=== PATIENT | male | born 1965 | race Caucasian/White ===

== ENCOUNTER 2017-08-25 05:32 | Inpatient (IN) | payer OTHER ==
[2017-08-25] MEDS ORDERED: LACTATED RINGER'S 1,000 ML IV* (06:00)
[2017-08-25] MEDS ORDERED: CEFAZOLIN 2 GM/50 ML (PMX) 50 ML IVPB (06:00)
[2017-08-25] MEDS ORDERED: HYDROmorphONE 0.5 MG/0.5 ML SYG IV (07:00)
[2017-08-25] MEDS ORDERED: DIPHENHYDRAMINE 25 MG CAP PO (07:00)
[2017-08-25] MEDS ORDERED: AL HYDROX/MG HYDROX/SIMETH 30 ML CUP PO (07:00)
[2017-08-25] MEDS ORDERED: HYDROCODONE/APAP (10/325) TAB PO (07:00)
[2017-08-25] MEDS ORDERED: DIPHENHYDRAMINE 50 MG INJ IV ×2 (07:00→09:00)
[2017-08-25] MEDS ORDERED: CEPASTAT LOZENGE MT (07:00)
[2017-08-25] MEDS ORDERED: NALOXONE (0.4 MG/ML) INJ IV (07:00)
[2017-08-25] MEDS ORDERED: ONDANSETRON 4 MG INJ IV (07:00)
[2017-08-25] MEDS ORDERED: CEFAZOLIN 1 GM INJ ×2 (07:00→07:02)
[2017-08-25] MEDS ORDERED: ACETAMINOPHEN 325 MG TAB PO (07:00)
[2017-08-25] MEDS ORDERED: BISACODYL 10 MG SUPP PR (07:00)
[2017-08-25] MEDS ORDERED: PROPOFOL 20 ML (07:02)
[2017-08-25] MEDS ORDERED: GLYCOPYRROLATE 0.4 MG INJ (07:02)
[2017-08-25] MEDS ORDERED: NEOSTIGMINE 3 MG/3 ML SYRINGE (07:02)
[2017-08-25] MEDS ORDERED: ROCURONIUM 50 MG INJ (07:02)
[2017-08-25] MEDS ORDERED: ONDANSETRON 4 MG INJ (07:04)
[2017-08-25] MEDS ORDERED: DEXAMETHASONE 4 MG/ML 1 ML INJ (07:04)
[2017-08-25] MEDS ORDERED: MIDAZOLAM 1 MG/ML 2 ML INJ (07:04)
[2017-08-25] MEDS: LIDOCAINE 1%/EPI 30 ML INJ (08:08)
[2017-08-25] MEDS: THROMBIN 5000 UNIT VIAL (08:09)
[2017-08-25] MEDS: CA CHLORIDE 10% 10 ML SYRINGE (08:10)
[2017-08-25] MEDS: HEPARIN 1000 UNITS/ML 10 ML INJ (08:14)
[2017-08-25] MEDS: POLYMYXIN/BACITRACIN 1L IRRIG (08:58)
[2017-08-25] MEDS ORDERED: IPRATROPIUM (NEB) 0.5 MG/2.5 ML AMP HHN (09:00)
[2017-08-25] MEDS ORDERED: FENTAnyl 50 MCG/ML VIAL IV ×2 (09:00)
[2017-08-25] MEDS: DOCUSATE SODIUM 100 MG CAP PO ×2 (09:00→21:08)
[2017-08-25] MEDS ORDERED: EPHEDrine SULFATE 50 MG/5 ML SYG IV (09:00)
[2017-08-25] MEDS ORDERED: MIDAZOLAM 1 MG/ML 2 ML INJ IV (09:00)
[2017-08-25] MEDS ORDERED: MEPERIDINE 25 MG INJ IV (09:00)
[2017-08-25] MEDS ORDERED: OXYCODONE/ACETAMINOPHEN (5/325) TAB PO ×2 (09:00)
[2017-08-25] MEDS ORDERED: ALBUTEROL 0.083% (NEB) 2.5 MG/3 ML AMP HHN (09:00)
[2017-08-25] MEDS ORDERED: hydrALAzine 20 MG INJ IV (09:00)
[2017-08-25] MEDS ORDERED: LABETALOL HCL 20MG INJ IV (09:00)
[2017-08-25] MEDS ORDERED: TRIMETHOBENZAMIDE 100 MG/ML VIAL IM (09:00)
[2017-08-25] MEDS ORDERED: HYDROmorphONE (0.2 MG/ML) 10ML SYG IV ×3 (09:00)
[2017-08-25] MEDS: SURGIFOAM POWDER 1 GM KIT (09:40)
[2017-08-25] MEDS: FENTAnyl 50 MCG/ML VIAL (09:45)
[2017-08-25] MEDS ORDERED: SUGAMMADEX SODIUM 200 MG/2 ML VIAL IV (10:11)
[2017-08-25] MEDS: HYDROmorphONE 0.2 MG/ML PCA IV (10:48)
[2017-08-25] MEDS: FENTAnyl 50 MCG/ML VIAL IV ×2 (10:50→10:59)
[2017-08-25] MEDS: ONDANSETRON 4 MG INJ IV (10:52)
[2017-08-25] MEDS: D5W-0.45 NACL + KCL 20 MEQ 1,000 ML IV ×3 (11:46→23:31)
[2017-08-25] MEDS: CEFAZOLIN 1 GM/50 ML (PMX) 50 ML IVPB ×2 (14:51→23:31)
[2017-08-25] MEDS: PREDNISOLONE ACET 1% 5 ML OPH LEFT EYE ×2 (17:02→23:31)
[2017-08-26 05:14] LABS: ADD MAN DIFF? NO
[2017-08-26 05:23] LABS: BASOPHILS % 0.3 % (0.0-2.0); EOSINOPHILS % 0.2 % (0.0-7.0); HEMATOCRIT 33.7 % (42.0-52.0); HEMOGLOBIN 11.3 g/dl (14.0-18.0); LYMPHOCYTES # 2.6 10^3/ul (0.8-2.9); LYMPHOCYTES % 19.7 % (15.0-51.0); MEAN CORPUSCULAR HGB CONC 33.5 g/dl (32.0-37.0); MEAN CORPUSCULAR VOLUME 92.3 fl (82.0-101.0); MEAN PLATELET VOLUME 8.8 fl (7.4-10.4); MONOCYTE # 1.4 10^3/ul (0.3-0.9); MONOCYTES % 10.3 % (0.0-11.0); NEUTROPHIL # 9.1 10^3/ul (1.6-7.5); NEUTROPHILS % 69.1 % (39.0-77.0); PLATELET COUNT 324 10^3/UL (140-415); RED BLOOD COUNT 3.65 10^6/ul (4.70-6.10); RED CELL DISTRIBUTION WIDTH 12.2 % (11.5-14.5)
[2017-08-26 05:23] LABS: WHITE BLOOD COUNT 13.2 10^3/ul (4.8-10.8)
[2017-08-26 05:41] LABS: ANION GAP 12 (8-16); BLOOD UREA NITROGEN 17 mg/dl (7-20); CALCIUM 8.4 mg/dl (8.4-10.2); CARBON DIOXIDE 26 mmol/L (21-31); CHLORIDE 107 mmol/L (97-110); CREATININE 1.02 mg/dl (0.61-1.24); GLUCOSE 109 mg/dl (70-220); MAGNESIUM 1.9 mg/dl (1.7-2.5); POTASSIUM 4.2 mmol/L (3.5-5.1); SODIUM 141 mmol/L (135-144)
[2017-08-26] MEDS: PREDNISOLONE ACET 1% 5 ML OPH LEFT EYE ×2 (06:31→12:02)
[2017-08-26] MEDS: CEFAZOLIN 1 GM/50 ML (PMX) 50 ML IVPB (06:31)
[2017-08-26] MEDS: LEVOTHYROXINE 50 MCG TAB PO (06:31)
[2017-08-26] MEDS: PANTOPRAZOLE (EC) 40 MG TAB PO (06:31)
[2017-08-26] MEDS ORDERED: NON-FORMULARY/PATIENT OWN MED (Omeprazole* 20 MG) PO (09:00)
[2017-08-26] MEDS: DOCUSATE SODIUM 100 MG CAP PO (09:25)
[2017-08-26] MEDS: CARISOPRODOL 350 MG TAB PO (09:31)
[2017-08-26] MEDS: D5W-0.45 NACL + KCL 20 MEQ 1,000 ML IV (12:51)
[2017-08-26] MEDS: HYDROCODONE/APAP (10/325) TAB PO (13:41)
== END 2017-08-26 14:58 | disposition home or self-care (01) | DRG 517 ==
LOC: REC 05:32 → MS1 11:35
PROC: 01NB0ZZ Release Lumbar Nerve, Open Approach (ICD-10-PCS; principal; 2017-08-25 07:00)
DX: M48.07 Spinal stenosis, lumbosacral region (principal); E03.9 Hypothyroidism, unspecified; M48.061 Spinal stenosis, lumbar region without neurogenic claudication; M54.16 Radiculopathy, lumbar region; M54.17 Radiculopathy, lumbosacral region; K21.9 Gastro-esophageal reflux disease without esophagitis; K44.9 Diaphragmatic hernia without obstruction or gangrene
CPT/HCPCS: 72114; 80048; 83735; 85025; 86999; 97116; 97161; 97530